=== PATIENT | male | born 1960 | race African-American/Black ===

== ENCOUNTER 2016-07-06 14:07 | Inpatient (IN) | payer OTHER ==
[2016-07-06 18:26] VITALS: BMI 19.8
--- NOTE | 2016-07-06 18:37 | HP ---
COWS - Scale Resting Pulse: 1= [place] 81-100 Sweatin=Flushed/Facial Moisture Restless Observation: 3= Extraneous Movement Pupil Size: 2= Moderately Dilated Bone or Joint Aches: 2= Severe Diffuse Aches Runny Nose/ Eye Tearin= Runny Nose/Eyes GI Upset > 30mins: 3= Vomiting/Diarrhea Tremor Observation: 2= Slight Tremor Visible Yawning Observation: 2= >3x During Session Anxiety or Irritability: 2=Irritable/Anxious Goose Flesh Skin: 0=Smooth Skin COWS Score: 21 Admission ROS BHS - HPI Chief Complaint: I NEED HELP TO STOP USING HEROIN,COCAINE Allergies/Adverse Reactions: Allergies Allergy/AdvReac Type Severity Reaction Status Date / Time No Known Allergies Allergy Verified 06/28/15 19:53 History of Present Illness: THIS 55 YEARS OLD MALE WITH HEROIN AND COCAINE DEPENDENCE,WITHDRAWAL SYMPTOM, LAST DETOX 07/09 [facility] FX OF LEFT 5TH FINGER 3 WEEKS AGO,TREATED AT [facility] WITH SPLINT NICOTINE DEPENDENCE LONGEST PERIOD OF SOBRIETY 5 YEARS Exam Limitations: No Limitations - Ebola screening Have you traveled outside of the country in the last 21 days: No Have you had contact with anyone from an Ebola affected area: No Have you been sick,other than usual withdrawal symptoms: No Do you have a fever: No - Review of Systems Constitutional: Chills, Loss of Appetite, Malaise, Night Sweats, Changes in sleep, Unintentional Wgt. Loss EENT: reports: Tearing, Nose Congestion Respiratory: reports: No Symptoms reported Cardiac: reports: No Symptoms Reported GI: reports: Diarrhea, Nausea, Poor Appetite, Vomiting : reports: No Symptoms Reported Musculoskeletal: reports: Back Pain, Joint Pain, Muscle Pain, Joint Stiffness Integumentary: reports: Dryness Neuro: reports: Headache, Tremors Endocrine: reports: No Symptoms Reported Hematology: reports: No Symptoms Reported Psychiatric: reports: No Sypmtoms Reported, Judgement Intact, Mood/Affect Appropiate, Orientated x3, Depressed Other Systems: Reviewed and Negative Patient History - Patient Medical History Hx Anemia: No Hx Asthma: No Hx Chronic Obstructive Pulmonary Disease (COPD): No Hx Cancer: No Hx Cardiac Disorders: No Hx Congestive Heart Failure: No Hx Hypertension: No Hx Hypercholesterolemia: No Hx Pacemaker: No HX Cerebrovascular Accident: No Hx Seizures: No Hx Dementia: No Hx Diabetes: No Hx Gastrointestinal Disorders: No Hx Liver Disease: No Hx Genitourinary Disorders: No Hx Sexually Transmitted Disorders: No Hx Renal Disease (ESRD): No Hx Thyroid Disease: No Hx Human Immunodeficiency Virus (HIV): No (LAST 05/12 NEGATIVE) Hx Hepatitis C: No Hx Depression: Yes (NO MEDICATION) Hx Suicide Attempt: No Hx Bipolar Disorder: No Hx Schizophrenia: No Other Medical History: NO SUICIDAL,NO HOMICIDAL - Patient Surgical History Past Surgical History: No Hx Neurologic Surgery: No Hx Cataract Extraction: No Hx Cardiac Surgery: No Hx Lung Surgery: No Hx Breast Surgery: No Hx Breast Biopsy: No Hx Abdominal Surgery: Yes (RIGHT INGUINAL HERNIORRHY 2 YEARS AGO) Hx Appendectomy: No Hx Cholecystectomy: No Hx Genitourinary Surgery: No Hx Section: No Hx Orthopedic Surgery: No Anesthesia Reaction: No - PPD History Previous Implant?: Yes Documented Results: Negative w/o proof Implanted On Prior [facility] Admission?: Yes Date: 06/30/15 PPD to be Administered?: Yes - Smoking Cessation Smoking history: Current every day smoker Have you smoked in the past 12 months: Yes Aproximately how many cigarettes per day: 10 Hx Chewing Tobacco Use: No Initiated information on smoking cessation: Yes 'Breaking Loose' booklet given: 07/06/16 - Substance & Tx. History Hx Alcohol Use: No Hx Substance Use: Yes Substance Use Type: Cocaine, Heroin Hx Substance Use Treatment: Yes ([facility] 07/09) - Substances Abused Heroin Route: Inhalation Frequency: Daily Amount used: 3 TO 5 BAGS Age of first use: 23 Date of Last Use: 07/06/16 Cocaine Route: Smoking Frequency: 3-6 times per week Amount used: 50$ Age of first use: 25 Date of Last Use: 07/03/16 Family Disease History - Family Disease History Family History: Denies Admission Physical Exam S - Vital Signs Vital Signs: Vital Signs - 24 hr 07/06/16 18:24 Temperature 97.5 F L Pulse Rate 83 Respiratory 20 Rate Blood Pressure 118/66 - Physical General Appearance: Yes: Moderate Distress, Tremorous, Irritable, Sweating, Anxious HEENTM: Yes: Pharynx Normal, Nasal Congestion, Rhinorrhea Respiratory: Yes: Lungs Clear, Normal Breath Sounds, No Respiratory Distress Neck: Yes: Within Normal Limits Breast: Yes: Within Normal Limits Cardiology: Yes: Regular Rhythm, Regular Rate, S1, S2 Abdominal: Yes: Within Normal Limits, Normal Bowel Sounds, Non Tender, Flat, Soft Genitourinary: Yes: Within Normal Limits Back: Yes: Muscle Spasm Musculoskeletal: Yes: Back pain, Joint Stiffness, Muscle Pain Extremities: Yes: Normal Range of Motion, Non-Tender, Tremors Neurological: Yes: Within Normal Limits, primer inspector II-XII NML intact, Fully Oriented, Alert, Motor Strength 5/5 Integumentary: Yes: Dry Lymphatic: Yes: Within Normal Limits - Diagnostic (1) Nicotine dependence Current Visit: No Status: Acute (2) Opioid dependence with withdrawal Current Visit: No Status: Acute (3) Systemic lupus erythematosus Current Visit: No Status: Acute (4) Cocaine dependence Current Visit: No Status: Chronic Qualifiers: Substance use status: uncomplicated Qualified Code(s): F14.20 - Cocaine dependence, uncomplicated (5) Weight loss Current Visit: Yes Status: Acute (6) Finger fracture, left Current Visit: Yes Status: Acute Cleared for Admission [facility] - Detox or Rehab [facility] Level of Care: Medically Managed Detox Regimen/Protocol: Methadone [facility] Breath Alcohol Content Breath Alcohol Content: 0 Urine Drug Screen - Results Drug Screen Negative: No Urine Drug Screen Results: TERRENCE-Cocaine, OPI-Opiates, MTD-Methadone, OXY- Oxycodone
[2016-07-06] MEDS ORDERED: hydrOXYzine PAMOATE 50 MG CAPSULE (FP) PO PRN (18:51)
[2016-07-06] MEDS ORDERED: guaiFENesin/D-METHORPHAN HB 10 ML UNIT-DOSE CUPS PO PRN (18:51)
[2016-07-06] MEDS ORDERED: MAGNESIUM CITRATE 300 ML BOTTLE PO PRN (18:51)
[2016-07-06] MEDS ORDERED: MAG HYDROX/AL HYDROX/SIMETH 30 ML UNIT-DOSE CUP PO PRN (18:51)
[2016-07-06] MEDS ORDERED: METHADONE HCL 10 MG TABLET (FOR DETOX USE ONLY) PO ONE ×2 (18:51→23:00)
[2016-07-06] MEDS ORDERED: ACETAMINOPHEN 325 MG TABLET (FP) PO PRN (18:51)
[2016-07-06] MEDS ORDERED: LOPERAMIDE HCL 2 MG CAPSULE PO PRN (18:51)
[2016-07-06] MEDS ORDERED: MENTHOL/PHENOL 1 EACH UD MM PRN (18:51)
[2016-07-06] MEDS ORDERED: P-EPHED 60MG/TRIPROLIDI 2.5MG TABLET PO PRN (18:51)
[2016-07-06] MEDS ORDERED: IBUPROFEN 400 MG TABLET (FP) PO PRN (18:51)
[2016-07-06] MEDS ORDERED: MAGNESIUM HYDROX 2400MG/30ML ORAL SUSPENSION 30 ML CUP PO PRN (18:51)
[2016-07-06] MEDS: diazePAM 5 MG TABLET PO PRN (19:59)
[2016-07-06] MEDS: NICOTINE 21 MG/24 HOURS TOPICAL PATCH TD SCH (20:00)
[2016-07-06] MEDS: THIAMINE HCL 100 MG TABLET (FP) PO SCH (22:27)
[2016-07-06] MEDS: diphenhydrAMINE HCL 50 MG CAPSULE PO PRN (22:27)
[2016-07-06 23:07] LABS: URINE APPEARANCE CLEAR; URINE BILIRUBIN NEGATIVE (NEGATIVE); URINE BLOOD NEGATIVE (NEGATIVE); URINE COLOR YELLOW; URINE GLUCOSE (UA) NEGATIVE (NEGATIVE); URINE KETONE NEGATIVE (NEGATIVE); URINE LEUK ESTERASE NEGATIVE (NEGATIVE); URINE NITRITE NEGATIVE (NEGATIVE); URINE PROTEIN NEGATIVE (NEGATIVE); URINE UROBILINOGEN NEGATIVE E.U./dl (0.2-1.0)
[2016-07-07] MEDS: diazePAM 5 MG TABLET PO PRN (05:43)
--- NOTE | 2016-07-07 08:51 | PN ---
S COWS - Scale Resting Pulse: 0= [place] 80 or Below Sweatin= Chills/Flushing Restless Observation: 3= Extraneous Movement Pupil Size: 1= Pupils >than Normal Bone or Joint Aches: 2= Severe Diffuse Aches Runny Nose/ Eye Tearin= Runny Nose/Eyes GI Upset > 30mins: 3= Vomiting/Diarrhea Tremor Observation of Outstretched Hands: 2= Slight Tremor Visible Yawning Observation: 1= 1-2x During Session Anxiety or Irritability: 2=Irritable/Anxious Goose Flesh Skin: 0=Smooth Skin COWS Score: 17 S Progress Note (SOAP) Subjective: ALERT,IRRITABLE,ANXIOUS,INTERRUPTED SLEEP,TREMOR,PAIN IN THE BODY AND BACK Objective: 07/07/16 08:56 Vital Signs Temperature 96.0 F L 07/07/16 06:32 Pulse Rate 72 07/07/16 06:32 Respiratory Rate 18 07/07/16 06:32 Blood Pressure 107/75 07/07/16 06:32 O2 Sat by Pulse Oximetry (%) EKG NSR,POOR QUALITY Laboratory Last Values Urine Color Yellow 07/06/16 23:00 Urine Appearance Clear 07/06/16 23:00 Urine pH 7.0 (5.0-8.0) 07/06/16 23:00 Ur Specific [place] 1.027 (1.001-1.035) 07/06/16 23:00 Urine Protein Negative (NEGATIVE) 07/06/16 23:00 Urine Glucose (UA) Negative (NEGATIVE) 07/06/16 23:00 Urine Ketones Negative (NEGATIVE) 07/06/16 23:00 Urine Blood Negative (NEGATIVE) 07/06/16 23:00 Urine Nitrite Negative (NEGATIVE) 07/06/16 23:00 Urine Bilirubin Negative (NEGATIVE) 07/06/16 23:00 Urine Urobilinogen Negative E.U./dl (0.2-1.0) 07/06/16 23:00 Ur Leukocyte Esterase Negative (NEGATIVE) 07/06/16 23:00 LABS PENDING 07/07/16 08:58 NO CHEST PAIN,NO SOB,NO DIZZINESS Assessment: 07/07/16 08:58 WITHDRAWAL SYMPTOM Plan: CONTINUE DETOX
[2016-07-07] MEDS ORDERED: METHADONE HCL 10 MG TABLET (FOR DETOX USE ONLY) PO ONE (10:00)
[2016-07-07] MEDS: NICOTINE 21 MG/24 HOURS TOPICAL PATCH TD SCH (10:21)
[2016-07-07] MEDS: PRENATAL VITAMINS W/ FOLIC ACID TABLET (FP) PO SCH (10:21)
[2016-07-07 10:59] LABS: MCH 30.6 pg (25.7-33.7); MEAN CELL VOLUME 92.9 fl (80-96); PLATELET COUNT 309 K/MM3 (134-434); RDW 14.1 % (11.9-15.9)
[2016-07-07 11:14] LABS: ALBUMIN 3.1 g/dl (3.4-5.0); ANION GAP 8 (8-16); CALCIUM 8.4 mg/dL (8.5-10.1); CO2 31 mmol/L (21-32); GLUCOSE,RANDOM 90 mg/dL (74-106)
[2016-07-07 11:18] LABS: ALK PHOS 51 U/L (45-117); BILIRUBIN,TOTAL 0.4 mg/dL (0.2-1.0); CREATININE 0.8 mg/dL (0.7-1.3); SGOT/AST 13 U/L (15-37); SGPT/ALT 25 U/L (12-78); TOT PROT 5.8 g/dl (6.4-8.2)
--- NOTE | 2016-07-07 18:29 | CONSULT ---
[facility] Psychiatric Consult - Data Date of interview: 07/07/16 Admission source: [facility] Identifying data: Readmission to [facility] for this 55 y/o AA male seeking detox treatment on for heroin and cocaine dependence.Patient is a ,father of three,domiciled,unemployed and supported on Public Assistance. Substance Abuse History: Smoking Cessation. Smoking history: Current every day smoker. Have you smoked in the past 12 months: Yes. Aproximately how many cigarettes per day: 10. Hx Chewing Tobacco Use: No. Initiated information on smoking cessation: Yes. 'Breaking Loose' booklet given: 07/06/16. - Substance & Tx. History. Hx Alcohol Use: No. Hx Substance Use: Yes. Substance Use Type : Cocaine, Heroin. Hx Substance Use Treatment: Yes ([facility] 07/09). - Substances Abused. Heroin. Route: Inhalation. Frequency: Daily. Amount used: 3 TO 5 BAGS. Age of first use: 23. Date of Last Use: 07/06/16. Cocaine. Route: Smoking. Frequency: 3-6 times per week. Amount used: 50$. Age of first use: 25. Date of Last Use: 07/03/16. Confirmed. Medical History: Currently wearing a splint (fracture of left 5th finger two weeks ago) and a history of right inguinal herniorraphy. Psychiatric History: Patient denies. Physical/Sexual Abuse/Trauma History: Patient denies. Additional Comment: Urine Drug Screen Results: TERRENCE-Cocaine, OPI-Opiates, MTD- Methadone, OXY-Oxycodone.Noted. Mental Status Exam - Mental Status Exam Alert and Oriented to: Time Cognitive Function: Good Patient Appearance: Well Groomed Mood: Hopeful, Euthymic Affect: Normal Range Patient Behavior: Appropriate, Cooperative Speech Pattern: Clear Voice Loudness: Normal Thought Process: Goal Oriented Hallucinations: Denies Suicidal Ideation: Denies Homicidal Ideation: Denies Insight/Judgement: Poor Sleep: Well Appetite: Good Muscle strength/Tone: Normal Gait/Station: Normal Psychiatric Findings - Problem List ([place] 1, 2,3) (1) Opioid dependence with withdrawal Current Visit: Yes Status: Acute (2) Cocaine dependence Current Visit: Yes Status: Acute Qualifiers: Substance use status: uncomplicated Qualified Code(s): F14.20 - Cocaine dependence, uncomplicated (3) Nicotine dependence Current Visit: Yes Status: Acute (4) Finger fracture, left Current Visit: Yes Status: Acute (5) Systemic lupus erythematosus Current Visit: Yes Status: Chronic - Initial Treatment Plan Initial Treatment Plan: Psychoeducation.Detoxification.Observation.
[2016-07-07] MEDS: THIAMINE HCL 100 MG TABLET (FP) PO SCH (22:52)
--- NOTE | 2016-07-08 09:01 | PN ---
S COWS - Scale Resting Pulse: 0= [place] 80 or Below Sweatin= Chills/Flushing Restless Observation: 3= Extraneous Movement Pupil Size: 2= Moderately Dilated Bone or Joint Aches: 2= Severe Diffuse Aches Runny Nose/ Eye Tearin= Runny Nose/Eyes GI Upset > 30mins: 3= Vomiting/Diarrhea Tremor Observation of Outstretched Hands: 2= Slight Tremor Visible Yawning Observation: 1= 1-2x During Session Anxiety or Irritability: 2=Irritable/Anxious Goose Flesh Skin: 0=Smooth Skin COWS Score: 18 BHS Progress Note (SOAP) Subjective: ALERT,IRRITABLE,ANXIOUS,INTERRUPTED SLEEP,PAIN IN THE BODY AND BACK Objective: 07/08/16 09:00 Vital Signs Temperature 96.7 F L 07/08/16 06:45 Pulse Rate 74 07/08/16 06:45 Respiratory Rate 16 07/08/16 06:45 Blood Pressure 115/78 07/08/16 06:45 O2 Sat by Pulse Oximetry (%) EKG NSR,NORMAL ECG Laboratory Last Values WBC 7.0 K/mm3 (4.0-10.0) 07/07/16 06:00 RBC 4.07 M/mm3 (4.00-5.60) 07/07/16 06:00 Hgb 12.5 GM/dL (11.7-16.9) 07/07/16 06:00 Hct 37.8 % (35.4-49) 07/07/16 06:00 MCV 92.9 fl (80-96) 07/07/16 06:00 MCHC 33.0 g/dl (32.0-35.9) 07/07/16 06:00 RDW 14.1 % (11.9-15.9) 07/07/16 06:00 Plt Count 309 K/MM3 (134-434) D 07/07/16 06:00 MPV 8.0 fl (7.5-11.1) 07/07/16 06:00 Sodium 141 mmol/L (136-145) 07/07/16 06:00 Potassium 4.6 mmol/L (3.5-5.1) 07/07/16 06:00 Chloride 102 mmol/L (98-107) 07/07/16 06:00 Carbon Dioxide 31 mmol/L (21-32) 07/07/16 06:00 Anion Gap 8 (8-16) 07/07/16 06:00 BUN 16 mg/dL (7-18) 07/07/16 06:00 Creatinine 0.8 mg/dL (0.7-1.3) 07/07/16 06:00 Creat Clearance w eGFR > 60 (>60) 07/07/16 06:00 Random Glucose 90 mg/dL (74-106) 07/07/16 06:00 Calcium 8.4 mg/dL (8.5-10.1) L 07/07/16 06:00 Total Bilirubin 0.4 mg/dL (0.2-1.0) 07/07/16 06:00 AST 13 U/L (15-37) L D 07/07/16 06:00 ALT 25 U/L (12-78) 07/07/16 06:00 Alkaline Phosphatase 51 U/L (45-117) D 07/07/16 06:00 Total Protein 5.8 g/dl (6.4-8.2) L 07/07/16 06:00 Albumin 3.1 g/dl (3.4-5.0) L 07/07/16 06:00 Urine Color Yellow 07/06/16 23:00 Urine Appearance Clear 07/06/16 23:00 Urine pH 7.0 (5.0-8.0) 07/06/16 23:00 Ur Specific [place] 1.027 (1.001-1.035) 07/06/16 23:00 Urine Protein Negative (NEGATIVE) 07/06/16 23:00 Urine Glucose (UA) Negative (NEGATIVE) 07/06/16 23:00 Urine Ketones Negative (NEGATIVE) 07/06/16 23:00 Urine Blood Negative (NEGATIVE) 07/06/16 23:00 Urine Nitrite Negative (NEGATIVE) 07/06/16 23:00 Urine Bilirubin Negative (NEGATIVE) 07/06/16 23:00 Urine Urobilinogen Negative E.U./dl (0.2-1.0) 07/06/16 23:00 Ur Leukocyte Esterase Negative (NEGATIVE) 07/06/16 23:00 RPR Titer Nonreactive (NONREACTIVE) 07/07/16 06:00 Assessment: 07/08/16 09:00 WITHDRAWAL SYMPTOM Plan: CONTINUE DETOX
[2016-07-08] MEDS ORDERED: METHADONE HCL 5 MG TABLET (FOR DETOX USE ONLY) PO ONE (10:00)
[2016-07-08] MEDS: PRENATAL VITAMINS W/ FOLIC ACID TABLET (FP) PO SCH (10:18)
[2016-07-08] MEDS: NICOTINE 21 MG/24 HOURS TOPICAL PATCH TD SCH (10:18)
--- NOTE | 2016-07-08 13:19 | EKG ---
Test Reason : Blood Pressure : / mmHG Vent. Rate : 076 BPM Atrial Rate : 076 BPM P-R Int : 180 ms QRS Dur : 100 ms QT Int : 400 ms P-R-T Axes : 096 083 069 degrees QTc Int : 450 ms NORMAL SINUS RHYTHM SEPTAL INFARCT , AGE UNDETERMINED ABNORMAL ECG NO PREVIOUS ECGS AVAILABLE Confirmed by ROBBIE HENRY, AYLA ([id number]) on 07/08/2016 1:18:42 PM Referred By: Fredi Taveras Confirmed By:AYLA AVALOS MD
--- NOTE | 2016-07-08 13:19 | EKG ---
Test Reason : Blood Pressure : / mmHG Vent. Rate : 081 BPM Atrial Rate : 081 BPM P-R Int : 164 ms QRS Dur : 088 ms QT Int : 378 ms P-R-T Axes : 073 -10 056 degrees QTc Int : 439 ms NORMAL SINUS RHYTHM NORMAL ECG WHEN COMPARED WITH ECG OF 06-JUL-2016 19:08, CRITERIA FOR SEPTAL INFARCT ARE NO LONGER PRESENT NON-SPECIFIC CHANGE IN ST SEGMENT IN LATERAL LEADS Confirmed by AYLA AVALOS MD ([id number]) on 07/08/2016 1:18:38 PM Referred By: Fredi Taveras Confirmed By:AYLA AVALOS MD
[2016-07-08] MEDS: THIAMINE HCL 100 MG TABLET (FP) PO SCH (22:32)
[2016-07-08] MEDS: diphenhydrAMINE HCL 50 MG CAPSULE PO PRN (22:32)
[2016-07-09] MEDS: diazePAM 5 MG TABLET PO PRN (05:33)
[2016-07-09] MEDS ORDERED: METHADONE HCL 5 MG TABLET (FOR DETOX USE ONLY) PO ONE (10:00)
--- NOTE | 2016-07-09 10:12 | PN ---
S Progress Note (SOAP) Subjective: ALERT,IRRITABLE,ANXIOUS,INTERRUPTED SLEEP,TREMOR Objective: 07/09/16 10:11 Vital Signs Temperature 97.9 F 07/09/16 09:48 Pulse Rate 82 07/09/16 09:48 Respiratory Rate 18 07/09/16 09:48 Blood Pressure 94/67 07/09/16 09:48 O2 Sat by Pulse Oximetry (%) Assessment: 07/09/16 10:12 WITHDRAWAL SYMPTOM Plan: CONTINUE DETOX
[2016-07-09] MEDS: NICOTINE 21 MG/24 HOURS TOPICAL PATCH TD SCH (10:30)
[2016-07-09] MEDS: PRENATAL VITAMINS W/ FOLIC ACID TABLET (FP) PO SCH (10:30)
[2016-07-09] MEDS: THIAMINE HCL 100 MG TABLET (FP) PO SCH (22:13)
[2016-07-09] MEDS: diphenhydrAMINE HCL 50 MG CAPSULE PO PRN (22:13)
[2016-07-10] MEDS ORDERED: METHADONE HCL 10 MG TABLET (FOR DETOX USE ONLY) PO ONE (10:00)
[2016-07-10] MEDS: PRENATAL VITAMINS W/ FOLIC ACID TABLET (FP) PO SCH (10:36)
[2016-07-10] MEDS: NICOTINE 21 MG/24 HOURS TOPICAL PATCH TD SCH (10:37)
--- NOTE | 2016-07-10 15:11 | PN ---
BHS Progress Note (SOAP) Subjective: Sweating, Lower Back Ache. Objective: PT. A & O X 3. 07/10/16 15:09 Vital Signs Temperature 98.3 F 07/10/16 14:22 Pulse Rate 88 07/10/16 14:22 Respiratory Rate 20 07/10/16 14:22 Blood Pressure 109/62 07/10/16 14:22 O2 Sat by Pulse Oximetry (%) Laboratory Last Values WBC 7.0 K/mm3 (4.0-10.0) 07/07/16 06:00 RBC 4.07 M/mm3 (4.00-5.60) 07/07/16 06:00 Hgb 12.5 GM/dL (11.7-16.9) 07/07/16 06:00 Hct 37.8 % (35.4-49) 07/07/16 06:00 MCV 92.9 fl (80-96) 07/07/16 06:00 MCHC 33.0 g/dl (32.0-35.9) 07/07/16 06:00 RDW 14.1 % (11.9-15.9) 07/07/16 06:00 Plt Count 309 K/MM3 (134-434) D 07/07/16 06:00 MPV 8.0 fl (7.5-11.1) 07/07/16 06:00 Sodium 141 mmol/L (136-145) 07/07/16 06:00 Potassium 4.6 mmol/L (3.5-5.1) 07/07/16 06:00 Chloride 102 mmol/L (98-107) 07/07/16 06:00 Carbon Dioxide 31 mmol/L (21-32) 07/07/16 06:00 Anion Gap 8 (8-16) 07/07/16 06:00 BUN 16 mg/dL (7-18) 07/07/16 06:00 Creatinine 0.8 mg/dL (0.7-1.3) 07/07/16 06:00 Creat Clearance w eGFR > 60 (>60) 07/07/16 06:00 Random Glucose 90 mg/dL (74-106) 07/07/16 06:00 Calcium 8.4 mg/dL (8.5-10.1) L 07/07/16 06:00 Total Bilirubin 0.4 mg/dL (0.2-1.0) 07/07/16 06:00 AST 13 U/L (15-37) L D 07/07/16 06:00 ALT 25 U/L (12-78) 07/07/16 06:00 Alkaline Phosphatase 51 U/L (45-117) D 07/07/16 06:00 Total Protein 5.8 g/dl (6.4-8.2) L 07/07/16 06:00 Albumin 3.1 g/dl (3.4-5.0) L 07/07/16 06:00 Urine Color Yellow 07/06/16 23:00 Urine Appearance Clear 07/06/16 23:00 Urine pH 7.0 (5.0-8.0) 07/06/16 23:00 Ur Specific [place] 1.027 (1.001-1.035) 07/06/16 23:00 Urine Protein Negative (NEGATIVE) 07/06/16 23:00 Urine Glucose (UA) Negative (NEGATIVE) 07/06/16 23:00 Urine Ketones Negative (NEGATIVE) 07/06/16 23:00 Urine Blood Negative (NEGATIVE) 07/06/16 23:00 Urine Nitrite Negative (NEGATIVE) 07/06/16 23:00 Urine Bilirubin Negative (NEGATIVE) 07/06/16 23:00 Urine Urobilinogen Negative E.U./dl (0.2-1.0) 07/06/16 23:00 Ur Leukocyte Esterase Negative (NEGATIVE) 07/06/16 23:00 RPR Titer Nonreactive (NONREACTIVE) 07/07/16 06:00 Hepatitis C Antibody 0.1 s/co ratio (0.0-0.9) 07/07/16 06:00 LABS NOTED. Assessment: 07/10/16 15:10 WITHDRAWAL SYMPTOMS. Plan: CONTINUE DETOX.
[2016-07-10 22:26] VITALS: TEMP 97.6
[2016-07-10] MEDS: THIAMINE HCL 100 MG TABLET (FP) PO SCH (22:26)
[2016-07-10] MEDS: diphenhydrAMINE HCL 50 MG CAPSULE PO PRN (22:26)
[2016-07-11] MEDS ORDERED: METHADONE HCL 5 MG TABLET (FOR DETOX USE ONLY) PO ONE (06:00)
[2016-07-11 06:32] VITALS: BP 90/62; PULSE 75
--- NOTE | 2016-07-11 14:39 | DS ---
[facility] Detox Discharge Summary Admission Date: 07/06/16 Discharge Date: 07/11/16 - History Present History: Cocaine Dependence, Opioid Dependence Additional Comments: ADVISED PATIENT TO FOLLOW-UP WITH [facility] / REHAB MEDICAL PROVIDER AFTER DISCHARGE FROM DETOX FOR GENERAL MEDICAL ASSESSMENT AND FOR ABNORMAL ADMISSION LAB VALUES. Pertinent Past History: Systemic Lupus Erythematosus, Depression. - Physical Exam Results Vital Signs: Vital Signs Temperature 97.6 F 07/11/16 06:32 Pulse Rate 75 07/11/16 06:32 Respiratory Rate 18 07/11/16 06:32 Blood Pressure 90/62 07/11/16 06:32 O2 Sat by Pulse Oximetry (%) Pertinent Admission Physical Exam Findings: WITHDRAWAL SYMPTOMS. Laboratory Last Values WBC 7.0 K/mm3 (4.0-10.0) 07/07/16 06:00 RBC 4.07 M/mm3 (4.00-5.60) 07/07/16 06:00 Hgb 12.5 GM/dL (11.7-16.9) 07/07/16 06:00 Hct 37.8 % (35.4-49) 07/07/16 06:00 MCV 92.9 fl (80-96) 07/07/16 06:00 MCHC 33.0 g/dl (32.0-35.9) 07/07/16 06:00 RDW 14.1 % (11.9-15.9) 07/07/16 06:00 Plt Count 309 K/MM3 (134-434) D 07/07/16 06:00 MPV 8.0 fl (7.5-11.1) 07/07/16 06:00 Sodium 141 mmol/L (136-145) 07/07/16 06:00 Potassium 4.6 mmol/L (3.5-5.1) 07/07/16 06:00 Chloride 102 mmol/L (98-107) 07/07/16 06:00 Carbon Dioxide 31 mmol/L (21-32) 07/07/16 06:00 Anion Gap 8 (8-16) 07/07/16 06:00 BUN 16 mg/dL (7-18) 07/07/16 06:00 Creatinine 0.8 mg/dL (0.7-1.3) 07/07/16 06:00 Creat Clearance w eGFR > 60 (>60) 07/07/16 06:00 Random Glucose 90 mg/dL (74-106) 07/07/16 06:00 Calcium 8.4 mg/dL (8.5-10.1) L 07/07/16 06:00 Total Bilirubin 0.4 mg/dL (0.2-1.0) 07/07/16 06:00 AST 13 U/L (15-37) L D 07/07/16 06:00 ALT 25 U/L (12-78) 07/07/16 06:00 Alkaline Phosphatase 51 U/L (45-117) D 07/07/16 06:00 Total Protein 5.8 g/dl (6.4-8.2) L 07/07/16 06:00 Albumin 3.1 g/dl (3.4-5.0) L 07/07/16 06:00 Urine Color Yellow 07/06/16 23:00 Urine Appearance Clear 07/06/16 23:00 Urine pH 7.0 (5.0-8.0) 07/06/16 23:00 Ur Specific [place] 1.027 (1.001-1.035) 07/06/16 23:00 Urine Protein Negative (NEGATIVE) 07/06/16 23:00 Urine Glucose (UA) Negative (NEGATIVE) 07/06/16 23:00 Urine Ketones Negative (NEGATIVE) 07/06/16 23:00 Urine Blood Negative (NEGATIVE) 07/06/16 23:00 Urine Nitrite Negative (NEGATIVE) 07/06/16 23:00 Urine Bilirubin Negative (NEGATIVE) 07/06/16 23:00 Urine Urobilinogen Negative E.U./dl (0.2-1.0) 07/06/16 23:00 Ur Leukocyte Esterase Negative (NEGATIVE) 07/06/16 23:00 RPR Titer Nonreactive (NONREACTIVE) 07/07/16 06:00 Hepatitis C Antibody 0.1 s/co ratio (0.0-0.9) 07/07/16 06:00 LABS NOTED. - Treatment Hospital Course: Detox Protocol Followed, Detoxed Safely, Responded well, Discharged Condition Good Patient has Accepted a Rehab Referral to: NO. - Medication Discharge Medications: Ambulatory Orders NK [No Known Home Medication] 06/28/15 - Diagnosis (1) Cocaine dependence Status: Acute Qualifiers: Substance use status: uncomplicated Qualified Code(s): F14.20 - Cocaine dependence, uncomplicated (2) Finger fracture, left Status: Acute (3) Nicotine dependence Status: Chronic Qualifiers: Nicotine product type: cigarettes Substance use status: uncomplicated Qualified Code(s): F17.210 - Nicotine dependence, cigarettes, uncomplicated (4) Opioid dependence with withdrawal Status: Acute (5) Weight loss Status: Acute (6) Systemic lupus erythematosus Status: Chronic Qualifiers: Systemic lupus erythematosus type: unspecified Systemic lupus erythematosus organ involvement: unspecified Qualified Code(s): M32.9 - Systemic lupus erythematosus, unspecified - AMA Did Patient Leave Against Medical Advice: No
--- NOTE | 2016-07-15 13:09 | HP ---
ALEX HENRY Rehab Assess/Revision - Admission History Ad[facility] to Rehab [facility] Date of Admission to Rehab: 07/15/16 - Findings Detox History & Physical reviewed: Yes Concur with findings: Yes Comments/Additional Findings: for rehab as protocol,had fx of left 5th finger follow up with orthpedist
== END 2016-07-11 09:10 | disposition home or self-care (01) | DRG 773 ==
LOC: YASAS 14:07 → Y3N 18:59
PROVIDERS: ADMIT Internal Medicine; ATTEND Internal Medicine
PROC: HZ2ZZZZ Detoxification Services for Substance Abuse Treatment (ICD-10-PCS; principal; 2016-07-11)
DX: F11.23 Opioid dependence with withdrawal (principal); F14.20 Cocaine dependence, uncomplicated; F17.210 Nicotine dependence, cigarettes, uncomplicated; N21.9 Calculus of lower urinary tract, unspecified; R63.4 Abnormal weight loss; Z68.1 Body mass index [BMI] 19.9 or less, adult; Z87.81 Personal history of (healed) traumatic fracture
CPT/HCPCS: 36415; 80053; 81003; 85027; 86593; 93005; 93010

== ENCOUNTER 2016-07-15 09:39 | Inpatient (IN) | payer OTHER ==
[2016-07-15 10:43] VITALS: BMI 20.4
[2016-07-15] MEDS ORDERED: IBUPROFEN 400 MG TABLET (FP) PO PRN (13:11)
[2016-07-15] MEDS ORDERED: MAGNESIUM CITRATE 300 ML BOTTLE PO PRN (13:11)
[2016-07-15] MEDS ORDERED: guaiFENesin/D-METHORPHAN HB 10 ML UNIT-DOSE CUPS PO PRN (13:11)
[2016-07-15] MEDS ORDERED: MENTHOL/PHENOL 1 EACH UD MM PRN (13:11)
[2016-07-15] MEDS ORDERED: MAGNESIUM HYDROX 2400MG/30ML ORAL SUSPENSION 30 ML CUP PO PRN (13:11)
[2016-07-15] MEDS ORDERED: MAG HYDROX/AL HYDROX/SIMETH 30 ML UNIT-DOSE CUP PO PRN (13:11)
[2016-07-15] MEDS ORDERED: LOPERAMIDE HCL 2 MG CAPSULE PO PRN (13:11)
[2016-07-15] MEDS ORDERED: P-EPHED 60MG/TRIPROLIDI 2.5MG TABLET PO PRN (13:11)
--- NOTE | 2016-07-15 13:52 | HP ---
Psychiatrist Admission - Data Date of interview: 07/15/16 Admission source: [facility] Identifying data: This is the first [facility] admission for this 55 years old Black male, father of 3 children, unemployed on public assistance, domiciled seeking rehab treatment for heroin and cocaine Medical History: Significant for SLE, recent fracture of left 5th finger and surgery for left Inguinal Hernia repair. Smokes 10 cigarettes daily Psychiatric History: Denies history of previous psychiatric treatment. However, reports feeling anxious at present Physical/Sexual Abuse/Trauma History: Denies history of emotional, physical or sexual as well as DV relationship Additional Comment: Reports multiple previous arrests including 3 felony convictions. Denies being on parole/probation at present Vital Signs: Vital Signs - 24 hr 07/15/16 10:34 Temperature 97.3 F L Pulse Rate 91 H Respiratory 20 Rate Blood Pressure 107/61 Allergies/Adverse Reactions: Allergies Allergy/AdvReac Type Severity Reaction Status Date / Time No Known Allergies Allergy Verified 07/15/16 11:32 Date of last physical exam: 07/06/16 Concur with the findings of this exam: Yes - Substance Abuse/Tx History Hx Substance Use: Yes Substance Use Type: Cocaine (Started smkoing crack cocaine at age 25, consumes $ 50 worth 3-6 times weekly. Last smoked on 07/03/16), Heroin (Started using heroin at age 23, consumes 3-5 bags daily. Last used on 07/06/16) Hx Substance Use Treatment: Yes (2 previous inpt detox @ [facility]. one int rehab @ [facility]) - Admission Criteria Previous failed treatment: No Poor recovery environment: Yes Comorbidities: Yes Lacks judgement: Yes Mental Status Exam - Mental Status Exam Alert and Oriented to: Time, Place, Person Cognitive Function: Fair Patient Appearance: Well Groomed Mood: Anxious Affect: Appropriate Patient Behavior: Cooperative Speech Pattern: Clear Voice Loudness: Normal Thought Process: Intact Thought Disorder: Not Present Hallucinations: Denies Suicidal Ideation: Denies Homicidal Ideation: Denies Insight/Judgement: Fair Sleep: Well Appetite: Good Muscle strength/Tone: Normal Gait/Station: Normal Psychiatric Findings - Problem List ([place] 1, 2,3) (1) Opioid dependence Current Visit: Yes Status: Acute (2) Cocaine dependence Current Visit: No Status: Acute Qualifiers: Substance use status: uncomplicated Qualified Code(s): F14.20 - Cocaine dependence, uncomplicated (3) Nicotine dependence Current Visit: No Status: Chronic Qualifiers: Nicotine product type: cigarettes Substance use status: uncomplicated Qualified Code(s): F17.210 - Nicotine dependence, cigarettes, uncomplicated (4) Substance-induced anxiety disorder Current Visit: Yes Status: Acute (5) Finger fracture, left Current Visit: No Status: Acute (6) Systemic lupus erythematosus Current Visit: No Status: Chronic Qualifiers: Systemic lupus erythematosus type: unspecified Systemic lupus erythematosus organ involvement: unspecified Qualified Code(s): M32.9 - Systemic lupus erythematosus, unspecified - Initial Treatment Plan Initial Treatment Plan: 1) Start Vistaril 25 mg po Q 4hrs prn for anxiety. 2) Monitor progress
[2016-07-15] MEDS: THIAMINE HCL 100 MG TABLET (FP) PO SCH (23:35)
[2016-07-16] MEDS: PRENATAL VITAMINS W/ FOLIC ACID TABLET (FP) PO SCH (09:37)
[2016-07-16] MEDS: THIAMINE HCL 100 MG TABLET (FP) PO SCH (23:01)
[2016-07-17] MEDS: PRENATAL VITAMINS W/ FOLIC ACID TABLET (FP) PO SCH (09:49)
[2016-07-17] MEDS ORDERED: NAPROXEN 500 MG TABLET (FP) PO ONE (15:12)
[2016-07-17] MEDS: THIAMINE HCL 100 MG TABLET (FP) PO SCH (21:50)
[2016-07-17] MEDS: diphenhydrAMINE HCL 50 MG CAPSULE PO PRN (21:50)
[2016-07-17] MEDS: NAPROXEN 500 MG TABLET (FP) PO SCH (21:50)
[2016-07-18] MEDS: PRENATAL VITAMINS W/ FOLIC ACID TABLET (FP) PO SCH (09:37)
[2016-07-18] MEDS: NAPROXEN 500 MG TABLET (FP) PO SCH ×2 (09:37→21:05)
[2016-07-18] MEDS: diphenhydrAMINE HCL 50 MG CAPSULE PO PRN (21:05)
[2016-07-18] MEDS: THIAMINE HCL 100 MG TABLET (FP) PO SCH (21:05)
[2016-07-19] MEDS: PRENATAL VITAMINS W/ FOLIC ACID TABLET (FP) PO SCH (09:28)
[2016-07-19] MEDS: NAPROXEN 500 MG TABLET (FP) PO SCH ×2 (09:28→21:02)
[2016-07-19] MEDS ORDERED: NICOTINE POLACRILEX 2 MG GUM BUC PRN (10:32)
[2016-07-19] MEDS: NICOTINE 21 MG/24 HOURS TOPICAL PATCH TD SCH (12:24)
[2016-07-19] MEDS: THIAMINE HCL 100 MG TABLET (FP) PO SCH (21:02)
[2016-07-19] MEDS: diphenhydrAMINE HCL 50 MG CAPSULE PO PRN (21:03)
[2016-07-20] MEDS: PRENATAL VITAMINS W/ FOLIC ACID TABLET (FP) PO SCH (09:32)
[2016-07-20] MEDS: NAPROXEN 500 MG TABLET (FP) PO SCH ×2 (09:32→21:31)
[2016-07-20] MEDS: NICOTINE 21 MG/24 HOURS TOPICAL PATCH TD SCH (09:32)
[2016-07-20] MEDS: diphenhydrAMINE HCL 50 MG CAPSULE PO PRN (21:31)
[2016-07-20] MEDS: THIAMINE HCL 100 MG TABLET (FP) PO SCH (21:31)
[2016-07-20] MEDS: ACETAMINOPHEN 325 MG TABLET (FP) PO PRN (23:43)
[2016-07-21] MEDS: PRENATAL VITAMINS W/ FOLIC ACID TABLET (FP) PO SCH (09:38)
[2016-07-21] MEDS: NICOTINE 21 MG/24 HOURS TOPICAL PATCH TD SCH (09:38)
[2016-07-21] MEDS: NAPROXEN 500 MG TABLET (FP) PO SCH ×2 (09:38→21:30)
[2016-07-21] MEDS: THIAMINE HCL 100 MG TABLET (FP) PO SCH (21:30)
[2016-07-21] MEDS: hydrOXYzine PAMOATE 25 MG CAPSULE (FP) PO PRN (21:30)
[2016-07-21] MEDS: ACETAMINOPHEN 325 MG TABLET (FP) PO PRN (21:31)
[2016-07-22] MEDS: NAPROXEN 500 MG TABLET (FP) PO SCH ×2 (09:36→21:37)
[2016-07-22] MEDS: NICOTINE 21 MG/24 HOURS TOPICAL PATCH TD SCH (09:36)
[2016-07-22] MEDS: PRENATAL VITAMINS W/ FOLIC ACID TABLET (FP) PO SCH (09:36)
[2016-07-22] MEDS: THIAMINE HCL 100 MG TABLET (FP) PO SCH (21:37)
[2016-07-22] MEDS: hydrOXYzine PAMOATE 25 MG CAPSULE (FP) PO PRN (21:37)
[2016-07-23] MEDS: NICOTINE 21 MG/24 HOURS TOPICAL PATCH TD SCH (09:38)
[2016-07-23] MEDS: PRENATAL VITAMINS W/ FOLIC ACID TABLET (FP) PO SCH (09:38)
[2016-07-23] MEDS: NAPROXEN 500 MG TABLET (FP) PO SCH ×2 (09:38→21:01)
[2016-07-23] MEDS: THIAMINE HCL 100 MG TABLET (FP) PO SCH (21:01)
[2016-07-24] MEDS: PRENATAL VITAMINS W/ FOLIC ACID TABLET (FP) PO SCH (09:40)
[2016-07-24] MEDS: NAPROXEN 500 MG TABLET (FP) PO SCH ×2 (09:40→21:00)
[2016-07-24] MEDS: NICOTINE 21 MG/24 HOURS TOPICAL PATCH TD SCH (09:40)
[2016-07-24] MEDS: hydrOXYzine PAMOATE 25 MG CAPSULE (FP) PO PRN (21:00)
[2016-07-24] MEDS: THIAMINE HCL 100 MG TABLET (FP) PO SCH (21:01)
[2016-07-24] MEDS: diphenhydrAMINE HCL 50 MG CAPSULE PO PRN (22:07)
[2016-07-25] MEDS: NICOTINE 21 MG/24 HOURS TOPICAL PATCH TD SCH (09:35)
[2016-07-25] MEDS: NAPROXEN 500 MG TABLET (FP) PO SCH ×2 (09:35→21:11)
[2016-07-25] MEDS: PRENATAL VITAMINS W/ FOLIC ACID TABLET (FP) PO SCH (09:35)
[2016-07-25] MEDS: hydrOXYzine PAMOATE 25 MG CAPSULE (FP) PO PRN (21:11)
[2016-07-25] MEDS: THIAMINE HCL 100 MG TABLET (FP) PO SCH (22:16)
[2016-07-26] MEDS: NICOTINE 21 MG/24 HOURS TOPICAL PATCH TD SCH (09:32)
[2016-07-26] MEDS: PRENATAL VITAMINS W/ FOLIC ACID TABLET (FP) PO SCH (09:33)
[2016-07-26] MEDS: NAPROXEN 500 MG TABLET (FP) PO SCH ×2 (09:33→21:07)
[2016-07-26] MEDS: diphenhydrAMINE HCL 50 MG CAPSULE PO PRN (21:07)
[2016-07-26] MEDS: THIAMINE HCL 100 MG TABLET (FP) PO SCH (22:19)
[2016-07-26] MEDS: BACITRACIN 30 GM TUBE TOPICAL OINTMENT TP SCH (22:19)
[2016-07-27] MEDS: NAPROXEN 500 MG TABLET (FP) PO SCH ×2 (09:37→21:02)
[2016-07-27] MEDS: NICOTINE 21 MG/24 HOURS TOPICAL PATCH TD SCH (09:37)
[2016-07-27] MEDS: BACITRACIN 30 GM TUBE TOPICAL OINTMENT TP SCH (09:37)
[2016-07-27] MEDS: PRENATAL VITAMINS W/ FOLIC ACID TABLET (FP) PO SCH (09:37)
[2016-07-27] MEDS: THIAMINE HCL 100 MG TABLET (FP) PO SCH (21:02)
[2016-07-27] MEDS: diphenhydrAMINE HCL 50 MG CAPSULE PO PRN (21:03)
[2016-07-28] MEDS: NAPROXEN 500 MG TABLET (FP) PO SCH ×2 (09:37→21:01)
[2016-07-28] MEDS: PRENATAL VITAMINS W/ FOLIC ACID TABLET (FP) PO SCH (09:37)
[2016-07-28] MEDS: BACITRACIN 30 GM TUBE TOPICAL OINTMENT TP SCH (09:37)
[2016-07-28] MEDS: NICOTINE 21 MG/24 HOURS TOPICAL PATCH TD SCH (09:37)
[2016-07-28] MEDS: diphenhydrAMINE HCL 50 MG CAPSULE PO PRN (21:01)
[2016-07-28] MEDS: THIAMINE HCL 100 MG TABLET (FP) PO SCH (21:01)
[2016-07-29 06:48] VITALS: BP 119/67; PULSE 70; TEMP 97.9
[2016-07-29] MEDS: PRENATAL VITAMINS W/ FOLIC ACID TABLET (FP) PO SCH (09:44)
[2016-07-29] MEDS: NAPROXEN 500 MG TABLET (FP) PO SCH (09:44)
[2016-07-29] MEDS: BACITRACIN 30 GM TUBE TOPICAL OINTMENT TP SCH (09:46)
[2016-07-29] MEDS: NICOTINE 21 MG/24 HOURS TOPICAL PATCH TD SCH (09:47)
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
== END 2016-07-29 15:40 | disposition home or self-care (01) | DRG 772 ==
LOC: YASAS 09:39 → Y3W 13:20
PROVIDERS: ADMIT Psychiatry & Neurology Psychiatry; ATTEND Psychiatry & Neurology Psychiatry
PROC: HZ42ZZZ Group Counseling for Substance Abuse Treatment, Cognitive-Behavioral (ICD-10-PCS; principal; 2016-07-15)
DX: F11.20 Opioid dependence, uncomplicated (principal); F14.20 Cocaine dependence, uncomplicated; F17.210 Nicotine dependence, cigarettes, uncomplicated; F19.280 Other psychoactive substance dependence with psychoactive substance-induced anxiety disorder; M32.9 Systemic lupus erythematosus, unspecified; Z87.81 Personal history of (healed) traumatic fracture

== ENCOUNTER 2018-04-01 13:21 | Inpatient (IN) | payer OTHER ==
[2018-04-01 17:05] VITALS: BMI 19.8
--- NOTE | 2018-04-01 17:47 | HP ---
COWS - Scale Resting Pulse: 1= [place] 81-100 Sweatin=Flushed/Facial Moisture Restless Observation: 0= Sits Still Pupil Size: 0= Normal to Room Light Bone or Joint Aches: 2= Severe Diffuse Aches Runny Nose/ Eye Tearin= Nasal Congestion GI Upset > 30mins: 0= None Tremor Observation: 0= None Yawning Observation: 0= None Anxiety or Irritability: 0= None Goose Flesh Skin: 0=Smooth Skin COWS Score: 6 CIWA Score Nausea/Vomitin-No Nausea/No Vomiting Muscle Tremors: None Anxiety: 0-No Anxiety, at Ease Agitation: 0-Normal Activity Paroxysmal Sweats: No Perspiration Orientation: 0-Oriented Tacttile Disturbances: 0-None Auditory Disturbances: 0-None Visual Disturbances: 0-None Headache: 0-None Present CIWA-Ar Total Score: 0 - Admission Criteria [facility]ASAS Guidelines: Admission for Medically Managed Detox: Requires at least one of the followin. CIWA greater than 12 2. Seizures within the past 24 hours 3. Delirium tremens within the past 24 hours 4. Hallucinations within the past 24 hours 5. Acute intervention needed for co occurring medical disorder 6. Acute intervention needed for co occurring psychiatric disorder 7. Severe withdrawal that cannot be handled at a lower level of care (continued vomiting, continued diarrhea, abnormal vital signs) requiring intravenous medication and/or fluids 8. Admission ROS [facility] Allergies/Adverse Reactions: Allergies Allergy/AdvReac Type Severity Reaction Status Date / Time No Known Allergies Allergy Verified 04/01/18 20:43 History of Present Illness: patient here requesting detox from heroin use, reports use x 10 years , current daily use 4-5 bags/day via inhalation, denies IVDU , denies OD , previous detox x 2 , most recently 1 yr ago at this facility , longest sobriety x 1 year with meetings . Was at [facility] 2 years ago . No recent outpatient programs. ETOH use - reports occasional up to 5 nips/day . Current symptoms as above , latest use earlier today . utox + alvaro , fen , opi, mtd denies MMTP , states bought illicit methadone 2 d ago , 40 mg fentanyl use : denies cocaine : occasional Use cannabis : denies tobacco : 1/2 ppd , does not want nrt PMHX : lupus dx 4 years ago pshx: right inguinal hernia 3 years ago psych : depression , prior trazadone and lexapro, stopped taking 4 mo ago 2/2 decrease in libido shx :lives w/ ,unemployed x 3 years , previously [employer] in [place] Exam Limitations: No Limitations - Ebola screening Have you traveled outside of the country in the last 21 days: No Have you had contact with anyone from an Ebola affected area: No Have you been sick,other than usual withdrawal symptoms: No Do you have a fever: No - Review of Systems Constitutional: See HPI EENT: reports: Other (glasses -reading) Respiratory: reports: No Symptoms reported Cardiac: reports: No Symptoms Reported GI: reports: No Symptoms Reported : reports: No Symptoms Reported Musculoskeletal: reports: See HPI Integumentary: reports: No Symptoms Reported Neuro: reports: No Symptoms reported Endocrine: reports: No Symptoms Reported Psychiatric: reports: Orientated x3, other (see HPI) Patient History - Patient Medical History Hx Anemia: No Hx Asthma: No Hx Chronic Obstructive Pulmonary Disease (COPD): No Hx Cancer: No Hx Cardiac Disorders: No Hx Congestive Heart Failure: No Hx Hypertension: No Hx Hypercholesterolemia: No Hx Pacemaker: No HX Cerebrovascular Accident: No Hx Seizures: No Hx Dementia: No Hx Diabetes: No Hx Gastrointestinal Disorders: No Hx Liver Disease: No Hx Genitourinary Disorders: No Hx Sexually Transmitted Disorders: No Hx Renal Disease (ESRD): No Hx Thyroid Disease: No Hx Human Immunodeficiency Virus (HIV): No (LAST 05/12 NEGATIVE) Hx Hepatitis C: No Hx Depression: No Hx Suicide Attempt: No Hx Bipolar Disorder: No Hx Schizophrenia: No - Patient Surgical History Past Surgical History: Yes Hx Neurologic Surgery: No Hx Cataract Extraction: No Hx Cardiac Surgery: No Hx Lung Surgery: No Hx Breast Surgery: No Hx Breast Biopsy: No Hx Abdominal Surgery: Yes (Hernia repair in 2016) Hx Appendectomy: No Hx Cholecystectomy: No Hx Genitourinary Surgery: No Hx Section: No Hx Orthopedic Surgery: No Anesthesia Reaction: No - PPD History Date: 07/08/16 Results: 0 mm - Smoking Cessation Smoking history: Current every day smoker Have you smoked in the past 12 months: Yes Aproximately how many cigarettes per day: 10 Hx Chewing Tobacco Use: No Initiated information on smoking cessation: No - Substances Abused Heroin Route: SNIFF Frequency: Daily Amount used: 5 BAGS Age of first use: 23 Date of Last Use: 04/01/18 Alcohol Route: Oral Frequency: Daily Amount used: 5 LITTLE BOTTLES Age of first use: 19 Date of Last Use: 04/01/18 Family Disease History - Family Disease History Family History: Denies Admission Physical Exam [facility] - Vital Signs Vital Signs: Vital Signs - 24 hr 04/01/18 17:04 Temperature 96.2 F L Pulse Rate 85 Respiratory 20 Rate Blood Pressure 109/64 - Physical General Appearance: Yes: No Apparent Distress HEENTM: Yes: EOMI, Normal Voice, Pharynx Normal, Other (poor dentition) Respiratory: Yes: Chest Non-Tender, Lungs Clear, Normal Breath Sounds Neck: Yes: No masses,lesions,Nodules, Trachea in good position Cardiology: Yes: Regular Rhythm, Regular Rate, S1, S2 Abdominal: Yes: Normal Bowel Sounds, Non Tender, Soft Back: Yes: Normal Inspection Musculoskeletal: Yes: full range of Motion, Gait Steady Extremities: Yes: Normal Capillary Refill, Normal Inspection, Normal Range of Motion Neurological: Yes: Fully Oriented, Alert, Motor Strength 5/5 Integumentary: Yes: Normal Color, Dry, Warm - Diagnostic (1) Opioid dependence with withdrawal Current Visit: No Status: Acute (2) Nicotine dependence Current Visit: No Status: Chronic Qualifiers: Nicotine product type: cigarettes Substance use status: uncomplicated Qualified Code(s): F17.210 - Nicotine dependence, cigarettes, uncomplicated [facility] Breath Alcohol Content Breath Alcohol Content: 0 Urine Drug Screen - Results Drug Screen Negative: No Urine Drug Screen Results: ALVARO-Cocaine, OPI-Opiates, MTD-Methadone, FEN-Fentanyl
[2018-04-01] MEDS ORDERED: P-EPHED 60MG/TRIPROLIDI 2.5MG TABLET PO PRN (17:55)
[2018-04-01] MEDS ORDERED: MAG HYDROX/AL HYDROX/SIMETH 30 ML UNIT-DOSE CUP PO PRN (17:55)
[2018-04-01] MEDS ORDERED: MAGNESIUM CITRATE 300 ML BOTTLE PO PRN (17:55)
[2018-04-01] MEDS ORDERED: MAGNESIUM HYDROX 2400MG/30ML ORAL SUSPENSION 30 ML CUP PO PRN (17:55)
[2018-04-01] MEDS ORDERED: ACETAMINOPHEN 325 MG TABLET (FP) PO PRN (17:55)
[2018-04-01] MEDS ORDERED: MENTHOL/PHENOL 1 EACH UD MM PRN (17:55)
[2018-04-01] MEDS ORDERED: IBUPROFEN 400 MG TABLET (FP) PO PRN (17:55)
[2018-04-01] MEDS ORDERED: guaiFENesin/D-METHORPHAN HB 10 ML UNIT-DOSE CUPS PO PRN (17:55)
[2018-04-01] MEDS ORDERED: MELATONIN 5 MG TABLETS PO PRN (22:00)
[2018-04-01] MEDS: THIAMINE HCL 100 MG TABLET (FP) PO SCH (22:03)
[2018-04-01] MEDS ORDERED: METHADONE HCL 10 MG TABLET (FOR DETOX USE ONLY) PO ONE (23:00)
--- NOTE | 2018-04-01 23:33 | PN ---
[facility] Progress Note Note: Patient presented today w/ c/o of opiate and alcohol withdrawal. At time of admission patient seen by a physician and had no alcohol withdrawal symptoms. Patient now w/ increased anxiety. Will prescribe a PRN Valium order to support overall withdrawals and comfort levels.
[2018-04-02] MEDS ORDERED: METHADONE HCL 5 MG TABLET (FOR DETOX USE ONLY) PO ONE (10:00)
[2018-04-02] MEDS: PRENATAL VITAMINS W/ FOLIC ACID TABLET (FP) PO SCH (10:17)
--- NOTE | 2018-04-02 10:31 | PN ---
[facility] COWS - Scale Resting Pulse: 0= [place] 80 or Below Sweatin=Flushed/Facial Moisture Restless Observation: 1= Difficult to Sit Still Pupil Size: 0= Normal to Room Light Bone or Joint Aches: 2= Severe Diffuse Aches Runny Nose/ Eye Tearin= Runny Nose/Eyes GI Upset > 30mins: 2= Nausea/Diarrhea Tremor Observation of Outstretched Hands: 2= Slight Tremor Visible Yawning Observation: 1= 1-2x During Session Anxiety or Irritability: 1=Feels Anxious/Irritable Goose Flesh Skin: 0=Smooth Skin COWS Score: 13 S Progress Note (SOAP) Subjective: Sweats, shakes, back pain Objective: 04/02/18 10:30 Vital Signs - 8 hr 04/02/18 04/02/18 04/02/18 03:30 06:34 09:08 Temperature 98.2 F 98.1 F Pulse Rate 68 69 Respiratory 18 18 16 Rate Blood Pressure 108/63 107/57 L Labs pending Assessment: 04/02/18 10:31 Withdrawal sx Plan: Continue detox
[2018-04-02 11:12] LABS: HEMATOCRIT 38.2 % (35.4-49); HEMOGLOBIN 12.4 GM/dL (11.7-16.9); MCHC 32.4 g/dl (32.0-35.9); MEAN CELL VOLUME 92.4 fl (80-96); MEAN PLT VOLUME 8.4 fl (7.5-11.1); PLATELET COUNT 275 K/MM3 (134-434); RBC 4.14 M/mm3 (4.00-5.60); RDW 13.7 % (11.9-15.9); WHITE BLOOD COUNT 6.5 K/mm3 (4.0-10.0)
[2018-04-02 11:46] LABS: ALBUMIN 3.4 g/dl (3.4-5.0); ALK PHOS 45 U/L (45-117); ANION GAP 6 MMOL/L (8-16); BILIRUBIN,TOTAL 0.4 mg/dL (0.2-1); BLOOD UREA NITROGEN 20 mg/dL (7-18); CALCIUM 8.6 mg/dL (8.5-10.1); CHLORIDE 105 mmol/L (98-107); CO2 31 mmol/L (21-32); CREATININE 0.9 mg/dL (0.55-1.3); GLUCOSE,RANDOM 89 mg/dL (74-106); POTASSIUM 4.3 mmol/L (3.5-5.1); SGOT/AST 9 U/L (15-37); SGPT/ALT 21 U/L (13-61); SODIUM 142 mmol/L (136-145); TOT PROT 6.4 g/dl (6.4-8.2)
--- NOTE | 2018-04-02 21:15 | EKG ---
Test Reason : Blood Pressure : / mmHG Vent. Rate : 076 BPM Atrial Rate : 076 BPM P-R Int : 164 ms QRS Dur : 088 ms QT Int : 380 ms P-R-T Axes : 068 -40 051 degrees QTc Int : 427 ms NORMAL SINUS RHYTHM LEFT AXIS DEVIATION ABNORMAL ECG WHEN COMPARED WITH ECG OF 07-JUL-2016 09:13, NO SIGNIFICANT CHANGE WAS FOUND Confirmed by AYLA AVALOS MD ([id number]) on 04/02/2018 9:14:56 PM Referred By: Confirmed By:AYLA AVALOS MD
[2018-04-02] MEDS: THIAMINE HCL 100 MG TABLET (FP) PO SCH (22:23)
[2018-04-02] MEDS: diazePAM 5 MG TABLET PO PRN (22:24)
[2018-04-03 06:41] VITALS: TEMP 97.9
[2018-04-03 09:40] VITALS: BP 109/66; PULSE 68
[2018-04-03] MEDS ORDERED: METHADONE HCL 10 MG TABLET (FOR DETOX USE ONLY) PO ONE (10:00)
[2018-04-03] MEDS: diazePAM 5 MG TABLET PO PRN (10:05)
[2018-04-03] MEDS: PRENATAL VITAMINS W/ FOLIC ACID TABLET (FP) PO SCH (10:05)
--- NOTE | 2018-04-03 10:10 | PN ---
[facility] COWS - Scale Resting Pulse: 0= [place] 80 or Below Sweatin= Chills/Flushing Restless Observation: 0= Sits Still Pupil Size: 1= Pupils >than Normal Bone or Joint Aches: 2= Severe Diffuse Aches Runny Nose/ Eye Tearin= Nasal Congestion GI Upset > 30mins: 1= Stomach Cramp Tremor Observation of Outstretched Hands: 1= Tremor [place], Not Seen Yawning Observation: 1= 1-2x During Session Anxiety or Irritability: 1=Feels Anxious/Irritable Goose Flesh Skin: 0=Smooth Skin COWS Score: 9 [facility] Progress Note (SOAP) Subjective: GI distress tremor sweat back pain trouble sleep at night Objective: 04/03/18 10:10 Vital Signs Temperature 97.9 F 04/03/18 09:38 Pulse Rate 68 04/03/18 09:38 Respiratory Rate 16 04/03/18 09:38 Blood Pressure 109/66 04/03/18 09:38 O2 Sat by Pulse Oximetry (%) Laboratory Last Values WBC 6.5 K/mm3 (4.0-10.0) 04/02/18 07:50 RBC 4.14 M/mm3 (4.00-5.60) 04/02/18 07:50 Hgb 12.4 GM/dL (11.7-16.9) 04/02/18 07:50 Hct 38.2 % (35.4-49) 04/02/18 07:50 MCV 92.4 fl (80-96) 04/02/18 07:50 MCH 30.0 pg (25.7-33.7) 04/02/18 07:50 MCHC 32.4 g/dl (32.0-35.9) 04/02/18 07:50 RDW 13.7 % (11.9-15.9) 04/02/18 07:50 Plt Count 275 K/MM3 (134-434) 04/02/18 07:50 MPV 8.4 fl (7.5-11.1) 04/02/18 07:50 Sodium 142 mmol/L (136-145) 04/02/18 07:50 Potassium 4.3 mmol/L (3.5-5.1) 04/02/18 07:50 Chloride 105 mmol/L (98-107) 04/02/18 07:50 Carbon Dioxide 31 mmol/L (21-32) 04/02/18 07:50 Anion Gap 6 MMOL/L (8-16) L 04/02/18 07:50 BUN 20 mg/dL (7-18) H 04/02/18 07:50 Creatinine 0.9 mg/dL (0.55-1.3) 04/02/18 07:50 Creat Clearance w eGFR > 60 (>60) 04/02/18 07:50 Random Glucose 89 mg/dL (74-106) 04/02/18 07:50 Calcium 8.6 mg/dL (8.5-10.1) 04/02/18 07:50 Total Bilirubin 0.4 mg/dL (0.2-1) 04/02/18 07:50 AST 9 U/L (15-37) L 04/02/18 07:50 ALT 21 U/L (13-61) 04/02/18 07:50 Alkaline Phosphatase 45 U/L (45-117) 04/02/18 07:50 Total Protein 6.4 g/dl (6.4-8.2) 04/02/18 07:50 Albumin 3.4 g/dl (3.4-5.0) 04/02/18 07:50 RPR Titer Nonreactive (NONREACTIVE) 04/02/18 07:50 lab noted Assessment: 04/03/18 10:11 withdrawal sx 04/03/18 10:13 subxone maintenance program last fill 03/26/18 of 30 days supply Plan: continue detox patient refused to discuss suboxone program with 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
--- NOTE | 2018-04-03 12:19 | DS ---
[facility] Detox Discharge Summary Admission Date: 04/01/18 Discharge Date: 04/03/18 - History Present History: Opioid Dependence Additional Comments: 57 years old male admitted on 04/01/18 for opiate withdrawal sx insists to leave the detox unit wants to return to his suboxone program Dr Joaquin alert oriented x 3 no acute distress denies suicidal denies homocidal no self destructive behavior - Physical Exam Results Vital Signs: Vital Signs Temperature 97.9 F 04/03/18 09:38 Pulse Rate 68 04/03/18 09:38 Respiratory Rate 16 04/03/18 09:38 Blood Pressure 109/66 04/03/18 09:38 O2 Sat by Pulse Oximetry (%) Pertinent Admission Physical Exam Findings: opiate withdrawal sx Vital Signs Temperature 97.9 F 04/03/18 09:38 Pulse Rate 68 04/03/18 09:38 Respiratory Rate 16 04/03/18 09:38 Blood Pressure 109/66 04/03/18 09:38 O2 Sat by Pulse Oximetry (%) Laboratory Last Values WBC 6.5 K/mm3 (4.0-10.0) 04/02/18 07:50 RBC 4.14 M/mm3 (4.00-5.60) 04/02/18 07:50 Hgb 12.4 GM/dL (11.7-16.9) 04/02/18 07:50 Hct 38.2 % (35.4-49) 04/02/18 07:50 MCV 92.4 fl (80-96) 04/02/18 07:50 MCH 30.0 pg (25.7-33.7) 04/02/18 07:50 MCHC 32.4 g/dl (32.0-35.9) 04/02/18 07:50 RDW 13.7 % (11.9-15.9) 04/02/18 07:50 Plt Count 275 K/MM3 (134-434) 04/02/18 07:50 MPV 8.4 fl (7.5-11.1) 04/02/18 07:50 Sodium 142 mmol/L (136-145) 04/02/18 07:50 Potassium 4.3 mmol/L (3.5-5.1) 04/02/18 07:50 Chloride 105 mmol/L (98-107) 04/02/18 07:50 Carbon Dioxide 31 mmol/L (21-32) 04/02/18 07:50 Anion Gap 6 MMOL/L (8-16) L 04/02/18 07:50 BUN 20 mg/dL (7-18) H 04/02/18 07:50 Creatinine 0.9 mg/dL (0.55-1.3) 04/02/18 07:50 Creat Clearance w eGFR > 60 (>60) 04/02/18 07:50 Random Glucose 89 mg/dL (74-106) 04/02/18 07:50 Calcium 8.6 mg/dL (8.5-10.1) 04/02/18 07:50 Total Bilirubin 0.4 mg/dL (0.2-1) 04/02/18 07:50 AST 9 U/L (15-37) L 04/02/18 07:50 ALT 21 U/L (13-61) 04/02/18 07:50 Alkaline Phosphatase 45 U/L (45-117) 04/02/18 07:50 Total Protein 6.4 g/dl (6.4-8.2) 04/02/18 07:50 Albumin 3.4 g/dl (3.4-5.0) 04/02/18 07:50 RPR Titer Nonreactive (NONREACTIVE) 04/02/18 07:50 lab noted - Treatment Hospital Course: Detox Protocol Followed, Responded well Patient has Accepted a Rehab Referral to: Dr Jemal gallagher program - Medication Discharge Medications: Ambulatory Orders Buprenorphine/Naloxone [Suboxone 8Mg/2Mg Sl Film -] 1 each SL DAILY 04/03/18 - Diagnosis (1) Encounter for monitoring Suboxone maintenance therapy Current Visit: Yes Status: Chronic (2) Opioid dependence with withdrawal Current Visit: Yes Status: Acute (3) Weight loss Current Visit: Yes Status: Acute (4) Nicotine dependence Current Visit: Yes Status: Acute Qualifiers: Nicotine product type: cigarettes Substance use status: in withdrawal Qualified Code(s): F17.213 - Nicotine dependence, cigarettes, with withdrawal (5) Systemic lupus erythematosus Current Visit: Yes Status: Chronic Qualifiers: Systemic lupus erythematosus type: unspecified Systemic lupus erythematosus organ involvement: unspecified Qualified Code(s): M32.9 - Systemic lupus erythematosus, unspecified - AMA Did Patient Leave Against Medical Advice: Yes
[2018-04-04] MEDS ORDERED: METHADONE HCL 5 MG TABLET (FOR DETOX USE ONLY) PO ONE (06:00)
== END 2018-04-03 12:52 | disposition left against medical advice (07) | DRG 770 ==
LOC: YASAS 13:21 → Y6N 20:11
PROC: HZ2ZZZZ Detoxification Services for Substance Abuse Treatment (ICD-10-PCS; principal; 2018-04-01)
DX: F11.23 Opioid dependence with withdrawal (principal); F17.213 Nicotine dependence, cigarettes, with withdrawal; F19.24 Other psychoactive substance dependence with psychoactive substance-induced mood disorder; M32.9 Systemic lupus erythematosus, unspecified; R63.4 Abnormal weight loss; Z68.1 Body mass index [BMI] 19.9 or less, adult; Z51.81 Encounter for therapeutic drug level monitoring
CPT/HCPCS: 36415; 80053; 85027; 86593; 93005; 93010